=== PATIENT | female | born 1965 | race Caucasian/White ===

== ENCOUNTER → 2016-08-20 | Day surgery (SDC) | payer BC ==
[~2016-08-20] VITALS: Ht 160 cm; Wt 82.0 kg
[~2016-08-20] MED LIST: CETI10 PO; CYCLOPENTOLATE HCL 1% OPHT SOLN 2 ML BTL ONE; DIFL0.0512 LEFT EYE; FOLI1CAP7 PO; HYALURONIDASE/LIDOCAINE/EPINEPHRINE/BUPIVACAINE 6 ML SYR ONE; LIDOCAINE HCL 1% 20 ML VIAL ONE; LIDOCAINE HCL 1% 30 ML VIAL INFIL ONE; METH2.5T PO; PHENYLEPHRINE HCL 10% OPTH SOLN 5 ML BTL ONE; PLAQ200T PO; PROPOFOL 200 MG/20 ML AMP ONE; SIMV10TA PO; SODIUM CHLORID 0.9% 500 ML INJ 500 ML ONE; SYNT88TA PO; TETRACAINE 0.5% OPTH SOLN 4 ML BTL LEFT EYE ONE; TOBRAMYCIN/DEXAMETHASONE OPTH OINT 3.5 GM TUBE LEFT EYE ONE; TROPICAMIDE 1% OPHT SOLN 15 ML BTL ONE; VIGA0.5D LEFT EYE; VISCOAT OPHT IRRIG SOLN 0.75 ML SYRINGE LEFT EYE ONE; VITA1000 PO; ZOCO5TAB PO; ZOFR4TAB PO
[2016-08-20 08:16] VITALS: BP 144/95; PULSE 85; RESP 18; TEMP 99; O2SAT 100
[2016-08-20 08:21] VITALS: PULSE 85
[2016-08-20 09:09] VITALS: PULSE 98
[2016-08-20 10:25] VITALS: TEMP 98.6
--- NOTE | 2016-08-20 10:45 | PD.OP ---
Operative Report Date of Surgery: Aug 20, 2016 Preoperative Diagnosis: (1) Posterior subcapsular age-related cataract of left eye Postoperative Diagnosis: (1) Pseudophakia of left eye Procedure: phacoemulsification and intraocular lens implant left eye Anesthesia: MAC, retrobulbar block Surgeon: Yue Bone Document Control Supervisor(s): none Operation and Findings: Patient was consented for surgery, given a retrobulbar block by anesthesia, and taken back to the operating room. She was prepped and draped in the usual sterile fashion for ophthalmic surgery. A wire lid speculum was placed in the left eye. A paracentesis incision was created at the 5 o'clock position on the limbus. Preservative free lidocaine was put on top of the eye. Vision blue dye and viscoelastic was injected into the anterior chamber. The main incision was created at the 2 o'clock position on the limbus with a 2.4 mm keratome. A continuous curvilinear capsulorrhexis was made on the anterior lens capsule. Hydrodissection was used to separate the lens from the capsule. Phacoemulsification was used to remove the lens nucleus material. Irrigation and aspiration was used to remove the remaining cortical material. The lens implant ([id number]) was placed in the capsular bag. Viscoelastic was removed with irrigation and aspiration. The incisions were irrigated and found to be watertight. Tobradex ointment, a patch, and shield were placed on the left eye. The patient was sent to PACU in stable condition. Yue Bone MD Aug 20, 2016 10:45
[2016-08-20 10:55] VITALS: BP 127/67; PULSE 97; RESP 14; O2SAT 97
== END | disposition home or self-care (01) ==
LOC: PHSDC 07:24
PROVIDERS: ATTEND Ophthalmology
DX: H25.042 Posterior subcapsular polar age-related cataract, left eye (principal); E78.5 Hyperlipidemia, unspecified; E03.9 Hypothyroidism, unspecified
CPT/HCPCS: 66984; J7040; V2632